=== PATIENT | male | born 1990 | race Caucasian/White ===

== ENCOUNTER 2024-05-10 12:35 | Emergency (ER) | payer BC, SELFPAY ==
[2024-05-10] VITALS (10 sets, daily range): BP systolic 140–166; BP diastolic 73–102; PULSE 81–96; RESP 16; TEMP 36.7; O2SAT 81–100; BMI 61.0
--- NOTE | 2024-05-10 12:42 | DI.RAD.S_ITS ---
PROCEDURE: XR ELBOW RT MIN 3V INDICATIONS: fall, pain, swelling TECHNIQUE: 3 views of the elbow were acquired. COMPARISON: [facility], , XR HUMERUS RT 2V, 05/10/2024, 12:45. FINDINGS: Bones: There is a comminuted, oblique fracture of the distal humeral shaft. No intra-articular involvement is seen. There is moderate displacement and moderate angulation. Soft tissues: No large elbow joint effusion. No suspicious soft tissue calcifications. IMPRESSION: Distal humeral shaft fracture, with moderate angulation and moderate displacement. Dictated by: Foreign Estrada M.D. on 05/10/2024 at 12:41 Approved by: Foreign Estrada M.D. on 05/10/2024 at 12:41
--- NOTE | 2024-05-10 12:54 | DI.RAD.S_ITS ---
PROCEDURE: XR HUMERUS RT 2V INDICATIONS: fall TECHNIQUE: 2 views of the humerus were acquired. COMPARISON: [facility], CR, XR ELBOW RT MIN 3V, 05/10/2024, 12:45. FINDINGS: Bones: There is a comminuted fracture of the distal humeral shaft, with oblique fracture lines, with moderate displacement and moderate angulation. No intra-articular involvement is seen. Soft tissues: Associated soft tissue swelling is seen. IMPRESSION: Distal humeral shaft fracture. Dictated by: Foreign Estrada M.D. on 05/10/2024 at 12:41 Approved by: Foreign Estrada M.D. on 05/10/2024 at 12:42
[2024-05-10] MEDS: ONDANSETRON 4 MG/2 ML INJ IV (13:00)
--- NOTE | 2024-05-10 14:51 | ED_ITS ---
HPI - Fall General Chief Complaint: Fall Stated Complaint: GLF/ humeral fx? Time Seen by Provider: 05/10/24 14:51 History of Present Illness HPI Narrative: 33-year-old male visiting from [place], was camping at [facility] when he tripped over tent skate, falling forward toward a tree, lead with his right arm, right arm into tree as he fell, complained of right elbow lower arm area discomfort. Fracture suspected. Patient was flown by air ambulance for evaluation here. No other injuries. He did not hit his head. He has not have neck pain, upper back pain, mid low back pain, chest discomfort, abdominal discomfort. He has no bilateral lower extremity new complaints. He wears a left AFO brace due to chronic lower extremity weakness from remote polio illness. He has no pain to his left upper extremities. He has no weakness or numbness that is new. He has no pain to his right fingers, hand, wrist, forearm. No pain at right shoulder, clavicle, right upper arm. But there is some discomfort approaching the right elbow area and the right lower aspect upper arm. No tingling or numbness to the forearm or hand on the right side. Related Data Previous Rx's Medication Instructions Recorded hydrocodone 5 mg-acetaminophen 325 1 tab PO Q6H PRN pain #14 tabs 05/10/24 mg tablet Allergies Allergy/AdvReac Type Severity Reaction Status Date / Time amoxicillin Allergy Hives Verified 05/10/24 12:59 Review of Systems Review of Systems Narrative: see HPI Exam Narrative Exam Narrative: GENERAL: Well-developed patient, in mild distress. HEAD: Atraumatic. Normocephalic. EYES: Pupils equal round and reactive. Extraocular motions intact. No scleral icterus. No injection or drainage. ENT: Nose without bleeding, purulent drainage. Throat without erythema, tonsil lar hypertrophy or exudate. Airway patent. NECK: Trachea midline. Non tender CARDIOVASCULAR: Regular rate and rhythm without murmurs, gallops, or rubs. RESPIRATORY: Clear to auscultation. Breath sounds equal bilaterally. No wheezes, rales, or rhonchi. GASTROINTESTINAL: Abdomen soft, non-tender, nondistended. EXTREMITIES: Splint removed from EMS. Patient has no gross deformity but is fairly obese. Some tenderness to right elbow area, and proximal humerus. No tenderness mid upper right humerus, nor right anterior shoulder, along clavicle, along trapezius or rhomboid. No tenderness right forearm distal wrist, hands fingers. No tenderness to left upper extremity. He wears AFO that is in place left lower extremity, without gross deformity. No deformity right lower extremity. BACK: Nontender without deformity or crepitance. No flank tenderness. NEURO: AOx3. Motor functions grossly nonfocal SKIN: No rash or erythema of visible areas Initial Vital Signs Initial Vital Signs: Vital Signs Pulse Oximetry 81 L 05/10/24 12:38 Course Orders Ordered: Discontinued Medications Hydrocodone Bitart/Acetaminophen (Hydrocodone/Acet 5/325 Tablet) 1 tab PO NOW ONE Stop: 05/10/24 16:28 Last Admin: 05/10/24 16:38 Dose: 1 tab Documented By: RAJESH Hydrocodone Bitart/Acetaminophen (Hydrocodone/Acet 5/325 Prepack) 1 bottle MISC DIRECTED ONE Stop: 05/10/24 19:04 Last Admin: 05/10/24 19:11 Dose: 1 bottle Documented By: RAJESH Hydromorphone HCl (Hydromorphone 1 Mg Inj) 0.5 mg IV NOW ONE Stop: 05/10/24 14:54 Last Admin: 05/10/24 14:59 Dose: 0.5 mg Documented By: RADHA Ondansetron HCl (Ondansetron 4 Mg/2 Ml Inj) 4 mg IV NOW ONE Stop: 05/10/24 12:52 Last Admin: 05/10/24 13:00 Dose: 4 mg Documented By: RADHA Vital Signs Vital signs: Vital Signs - 8 hr 05/10/24 12:38 05/10/24 12:39 05/10/24 12:39 Temperature Pulse Rate 84 Respiratory Rate Blood Pressure 140/73 Pulse Oximetry 81 L 100 Oxygen Delivery Method 05/10/24 12:44 05/10/24 15:33 05/10/24 15:35 Temperature 98.0 F Pulse Rate 84 84 83 Respiratory Rate 16 Blood Pressure 140/73 Pulse Oximetry 100 100 100 Oxygen Delivery Method Room Air 05/10/24 15:35 Temperature Pulse Rate Respiratory Rate Blood Pressure 145/73 H Pulse Oximetry Oxygen Delivery Method MDM - Fall Imaging Data Extremity x-ray #1: Radiologist's Impression: [address] [address] XRay Report Signed Patient: Jose Redding MR#: [id number] : 1990 Acct:[id number] Age/Sex: 33 / M Date of Service: 05/10/24 Loc: ED Accession Number: [id number] Procedure: XR humerus RT 2V Ordering Provider: Charlie Lowe MD PROCEDURE: XR HUMERUS RT 2V INDICATIONS: fall TECHNIQUE: 2 views of the humerus were acquired. COMPARISON: [facility], , XR ELBOW RT MIN 3V, 05/10/2024, 12:45. FINDINGS: Bones: There is a comminuted fracture of the distal humeral shaft, with oblique fracture lines, with moderate displacement and moderate angulation. No intra-articular involvement is seen. Soft tissues: Associated soft tissue swelling is seen. IMPRESSION: Distal humeral shaft fracture. Dictated by: Foreign Estrada M.D. on 05/10/2024 at 12:41 Approved by: Foreign Estrada M.D. on 05/10/2024 at 12:42 Extremity x-ray #2: Radiologist's Impression: [place] [address] XRay Report Signed Patient: Jose Redding MR#: [id number] : 1990 Acct:[id number] Age/Sex: 33 / M Date of Service: 05/10/24 Loc: ED Accession Number: [id number] Procedure: XR elbow RT min 3V Ordering Provider: Charlie Lowe MD PROCEDURE: XR ELBOW RT MIN 3V INDICATIONS: fall, pain, swelling TECHNIQUE: 3 views of the elbow were acquired. COMPARISON: [facility], , XR HUMERUS RT 2V, 05/10/2024, 12:45. FINDINGS: Bones: There is a comminuted, oblique fracture of the distal humeral shaft. No intra-articular involvement is seen. There is moderate displacement and moderate angulation. Soft tissues: No large elbow joint effusion. No suspicious soft tissue calcifications. IMPRESSION: Distal humeral shaft fracture, with moderate angulation and moderate displacement. Dictated by: Foreign Estrada M.D. on 05/10/2024 at 12:41 Approved by: Foreign Estrada M.D. on 05/10/2024 at 12:41 MDM Narrative Medical decision making narrative: Morbidly obese male from [place] fell forward at campsite using right arm to break fall into nearby tree, right upper arm fracture suspected, flown from [facility] this weekend where there is no open clinic, tender lower aspect right distal humerus, not at olecranon or distal RUE or shoulder/clavicle. XRays ordered at triage XR shows moderately displaced comminuted distal humerus fracture. See radiology report EMS splint removed, placed into long arm fiberglass support splint, with sling. Case discussed with orthopedics on-call here, neurovasc currently intact, agrees with above splinting/sling, can follow-up with home [facility] orhtopedics early this next week to coordiante fixation surgical definitive care PO dose hydrocodone given, homepack Hydrocodone dispensed at this weekend hour when area pharmacies are closed, Rx further Hydrocodone e-sent to his [facility] pharmacy. Home via friend who can be tow bar driver back to [facility]. Copies XRays placed onto disc for ortho review. Discharge Plan Departure Patient Disposition: Home Clinical Impression: Fracture, humerus closed Activity Restrictions/Additional Instructions: Fall at a camp ground on [facility], extended right arm to prevent crashing into a tree, right elbow regional discomfort, remote [place] air transport here. X-ray showed comminuted multiple fragment fracture of the distal humerus, however no elbow joint dislocation. Your neurovascularly intact. Splint from EMS cardboard wrap was changed to padded fiberglass splinting material in L- shaped support with sling support. Case was discussed with local orthopedic surgery Dr. Deras, who advised follow up in your home [facility], call for appointment early this week in your home [facility]. Pain medications dispensed, and prescription sent to your home [facility] pharmacy requested. Follow up in [facility] with Orthopedic surgery early next week, to coordinate definitive surgical care of this multi fragment fracture. Return earlier to this/nearest emergency department for any change worsening symptoms or any concerns prior Prescriptions: New hydrocodone-acetaminophen 5-325 mg tablet 1 tab PO Q6H PRN (Reason: pain) Qty: 14 0RF Stand Alone Forms: Patient Portal/API
[2024-05-10] MEDS: HYDROMORPHONE 1 MG INJ 0.5 MG IV (14:59)
[2024-05-10] MEDS: HYDROCODONE/ACET 5/325 TABLET 1 TAB PO (16:38)
[2024-05-10] MEDS: HYDROCODONE/ACET 5/325 PREPACK 1 BOTTLE MISC (19:11)
== END 2024-05-10 19:16 | disposition home or self-care (01) ==
PROVIDERS: Emergency Provider Emergency Medicine
DX: S42.401A Unspecified fracture of lower end of right humerus, initial encounter for closed fracture (principal); W01.0XXA Fall on same level from slipping, tripping and stumbling without subsequent striking against object, initial encounter
CPT/HCPCS: 29105; 73060; 73080; 96374; 96375; 99284; J1171; J2405